=== PATIENT | male | born 1965 | race Caucasian/White ===

== ENCOUNTER 2018-07-24 20:12 | Observation (INO) | payer SELFPAY ==
[2018-07-24] MEDS ORDERED: Nitroglycerin 2% Ointment 1 INCH/1 GM Packet ONE (20:46)
[2018-07-24 21:38] LABS: Troponin I Less than 0.010 ng/mL (< 0.028)
[2018-07-24] MEDS ORDERED: Acetaminophen 325 MG TAB PO PRN (21:59)
[2018-07-24] MEDS ORDERED: Ondansetron HCl/PF 4 MG/2 ML Vial IVP PRN (21:59)
[2018-07-24] MEDS ORDERED: Aspirin 325 MG TAB PO SCH (22:15)
[2018-07-24 23:15] VITALS: BMI 45.4
[2018-07-25 00:48] LABS: Troponin I Less than 0.010 ng/mL (< 0.028)
--- NOTE | 2018-07-25 01:46 | HP ---
PRIMARY CARE PHYSICIAN: No PCP. CODE STATUS: FULL CODE. TIME OF EVALUATION: 8:55 p.m. CHIEF COMPLAINT: Shortness of breath and chest pain. HISTORY OF PRESENT ILLNESS: This is a 53-year-old male patient with past medical history that is non significant, came to the hospital after having gradually worsening shortness of breath, bilateral leg swelling, associated with some chest tightness earlier this morning. They last for a few hours, no clear triggers, no alleviating factors. The patient is morbidly obese, presenting with mildly elevat ed blood pressure, not taking any medications at home. Symptoms were moderate. REVIEW OF SYSTEMS: Constitutional: No fever or chills. Patient reported generalized weakness. Res piratory: Patient has shortness of breath, especially with exertion, mild sputum production. Cardio vascular: Patient has chest pain, no palpitation. Gastrointestinal: No nausea, vomiting, diarrhea or abdominal pain. TICKET TAKER FERRYBOAT: No dizziness, headache or feeling lightheaded. Genitourinary: No burning on urination. Extremities: Bilateral leg swelling. All other systems were reviewed and negative ex cept as the findings mentioned above. PAST MEDICAL HISTORY: No significant medical problems. PAST SURGICAL HISTORY: Bilateral knee arthroscopic surgery. PSYCHIATRIC HISTORY: No previous psychiatric history. SOCIAL HISTORY: No drug use, no alcohol. Patient smokes on a daily basis for 30 years, 2 packs a da y. DRUG ALLERGIES: No known drug allergies. REPORTED MEDICATIONS: None. PHYSICAL EXAMINATION: VITAL SIGNS: On presentation, heart rate 73, respiratory rate was 18, temperature 98, pain 0/10, oxy gen saturation 97% on room air. GENERAL APPEARANCE: The patient is alert, oriented, no acute distress. HEENT: Eyes, normal conjunctivae. Moist oral mucosa. Anicteric. No JVD. RESPIRATORY: Bilateral air entry. No rales, no wheezing. Symmetric expansion. CARDIOVASCULAR: Normal rate, regular rhythm. No murmurs or gallop. Bilateral leg edema ABDOMEN: Soft, normal bowel sounds. MUSCULOSKELETAL: Baseline range of motion and strength. No tenderness. SKIN: Warm and intact. No pallor, no rash or redness. Peripheral pulses are present. Capillary re fill seems to be intact. NEUROLOGIC: Baseline sensorium. No evidence of any new focal weakness. Baseline speech. Cranial n erves seem to be intact. PSYCHIATRIC: Patient is in good mood, no anxiety, oriented, optimal judgment. LABORATORY DATA: EKG was reviewed. Patient has normal sinus rhythm with a rate of 64, MN 164, QRS 9 0, QT corrected 410. Chest x-ray was reviewed which showed unremarkable AP view of the chest with mi ld pulmonary vascular congestion. LABORATORY DATA: Reviewed. Troponin was negative x2. Hematology: White count 9.0, hemoglobin 14.3 , platelet count 191. Coagulation: D-dimer was negative. Chemistry: Sodium 137, potassium 4.0, ch loride 99, carbon dioxide 29, anion gap 13, BUN 12, creatinine 1.16, GFR 65, glucose 212, calcium 9.3 , AST 73, ALT 102, alkaline phosphatase 145. Beta natriuretic peptide was normal. ASSESSMENT AND PLAN: The patient will be placed in the hospital following medical problems: 1. Possible underlying congestive heart failure, proBNP is normal; however, patient is obese, will b e false negative, we do echo in the morning, if echo is normal, might proceed with the stress test. 2. Troponins, we will monitor on telemetry. Patient has significant bilateral leg edema. We will t reat the patient with Lasix for now. 3. Morbid obesity, patient is advised to lose weight. 4. Everyday smoker, advised to stop smoking. 5. Hyperglycemia. Previous hemoglobin A1c in March was normal, so this might be intolerance to gluco se versus hyperglycemia due to acute physical distress. We will monitor, no need for an acute interv ention at this point. 6. Mildly elevated liver function tests, this could be secondary to obesity, possible fatty liver di sease. Bilirubin is normal. This might be followed as an outpatient.
[2018-07-25 05:16] LABS: #Monocytes 0.1 thou/uL (0.11-0.59); %Basophils 0.2 % (0.0-1.0); %Eosinophils 0.2 % (0.0-10.0); %Lymphocytes 9.6 % (21.0-51.0); %Monocytes 1.3 % (0.0-10.0); %Neutrophils 88.8 % (42.0-75.0); Mean Corpuscular HGB CONC 33.6 g/dL (32.0-36.0); Mean Corpuscular Volume 95.3 fL (78.0-98.0); Mean Platelet Volume 7.8 fL (7.4-10.4); Platelet Count 195 thou/uL (130-400); RBC Distribution Width 11.1 % (11.5-14.5); Red Blood Cell (RBC) Count 4.39 mill/uL (4.70-6.10); White Blood Cell (WBC) Count 10.1 thou/uL (4.8-10.8)
[2018-07-25 05:33] LABS: Anion Gap 14 mmol/L (10-20); BUN (Urea Nitrogen) 16 mg/dL (8.4-25.7); Calc. Creatinine Clearance 109 mL/min (70-130); Calcium 9.7 mg/dL (7.8-10.44); Carbon Dioxide 26 mmol/L (22-29); Chloride 97 mmol/L (98-107); Estimated GFR-MDRD 52; Glucose 483 mg/dL (70-105); Potassium 5.2 mmol/L (3.5-5.1); Sodium 132 mmol/L (136-145)
[2018-07-25] MEDS ORDERED: Dextrose 50% Abboject 50 ML SYRINGE IVP PRN (06:59)
[2018-07-25] MEDS ORDERED: Dextrose 5% in Water 1,000 ML IV PRN (06:59)
[2018-07-25] MEDS ORDERED: Insulin Regular 300 UNITS/3 ML VIAL SC PRN ×2 (06:59)
[2018-07-25] MEDS ORDERED: Furosemide 40 MG/4 ML VIAL SLOW IVP SCH (09:00)
[2018-07-25] MEDS: Enoxaparin Sodium 40 MG/0.4 ML SYRINGE SC SCH (10:23)
[2018-07-25] MEDS: Aspirin 325 MG TAB PO SCH (10:24)
[2018-07-25 11:17] LABS: Hemoglobin A1c 7.9 % (4.0-6.0)
[2018-07-25 13:25] LABS: Potassium 4.5 mmol/L (3.5-5.1)
--- NOTE | 2018-07-25 15:00 | PDOC.PN ---
- Subjective Encounter Start Date: 07/25/18 Encounter Start Time: 14:58 Subjective: feels much better.no CP/SOB. -: leg swelling has much improved -: smokes heavily & significant FH of CAD in father,brothers - Objective Resuscitation Status: Resuscitation Status FULL:Full Resuscitation MAR Reviewed: Yes Vital Signs & Weight: Vital Signs (12 hours) Temp Pulse Resp BP Pulse Ox 07/25/18 10:57 97.8 F 80 20 118/59 L 97 07/25/18 08:00 97.5 F L 91 24 H 137/63 93 L 07/25/18 04:22 98.7 F 78 16 141/68 H 93 L 07/25/18 04:00 93 L Weight Weight 290 lb 4 oz I&O: 07/24/18 07/25/18 07/26/18 06:59 06:59 06:59 Intake Total 200 Output Total 1150 1 Balance -950 -1 Result Diagrams: 07/25/18 04:42 07/25/18 13:02 Additional Labs: Accuchecks 07/25/18 07/25/18 11:00 06:52 POC Glucose 400 H 387 H Laboratory Tests 07/24/18 07/24/18 07/25/18 16:26 21:07 00:18 Potassium Creatinine 1.16 Hemoglobin A1c Troponin I Less than 0.010 Less than 0.010 Triglycerides Cholesterol LDL Cholesterol, Calc HDL Cholesterol 07/25/18 07/25/18 07/25/18 04:42 04:42 04:42 Potassium 5.2 H Creatinine 1.42 H Hemoglobin A1c 7.9 H Troponin I Triglycerides 87 Cholesterol 186 LDL Cholesterol, Calc 123 HDL Cholesterol 46 07/25/18 13:02 Potassium 4.5 Creatinine Hemoglobin A1c Troponin I Triglycerides Cholesterol LDL Cholesterol, Calc HDL Cholesterol Phys Exam - Physical Examination Constitutional: NAD HEENT: PERRLA, moist MMs, sclera anicteric, oral pharynx no lesions Neck: no nodes, no JVD, supple, full ROM Respiratory: no wheezing, no rales, no rhonchi, clear to auscultation bilateral Cardiovascular: RRR, no significant murmur, no rub Gastrointestinal: soft, non-tender, no distention, positive bowel sounds Musculoskeletal: no edema, pulses present Neurological: non-focal, normal sensation, moves all 4 limbs Psychiatric: normal affect, A&O x 3 Skin: no rash Dx/Plan (1) Dyspnea on exertion Code(s): R06.09 - OTHER FORMS OF DYSPNEA Status: Acute (2) GAGAN (acute kidney injury) Code(s): N17.9 - ACUTE KIDNEY FAILURE, UNSPECIFIED Status: Acute Comment: Likley due to diuresis (3) Leg swelling Code(s): M79.89 - OTHER SPECIFIED SOFT TISSUE DISORDERS Status: Acute (4) DM2 (diabetes mellitus, type 2) Status: Chronic Comment: new diagnosis (5) Morbid obesity with BMI of 45.0-49.9, adult Code(s): E66.01 - MORBID (SEVERE) OBESITY DUE TO EXCESS CALORIES; Z68.42 - BODY MASS INDEX (BMI) 45.0-49.9, ADULT Status: Chronic (6) Tobacco abuse Code(s): Z72.0 - TOBACCO USE Status: Chronic (7) Tobacco abuse counseling Code(s): Z71.6 - TOBACCO ABUSE COUNSELING Status: Acute - Plan plan discussed w/ family, out of bed/ambulate, DVT proph w/SCDs ECHO pending -: high E3s-mqyy start metformin on DC.ISS inpt -: Pt counselled extensively about diet & lifestyle modification,tobacco cessa -: will consult dietitian. -: Change lasix to PO.? COPD if ECHO NL * .may need Stress test if ECHO NL for angina equivalent Review of Systems - Review of Systems Constitutional: negative: fever, chills, sweats, weakness, malaise, other ENT: negative: Ear Pain, Ear Discharge, Nose Pain, Nose Discharge, Nose Congestion, Mouth Pain, Mouth Swelling, Throat Pain, Throat Swelling, Other Respiratory: negative: Cough, Dry, Shortness of Breath, Hemoptysis, SOB with Excertion, Pleuritic Pain, Sputum, Wheezing Cardiovascular: negative: chest pain, palpitations, orthopnea, paroxysmal nocturnal dyspnea, edema, light headedness, other Gastrointestinal: negative: Nausea, Vomiting, Abdominal Pain, Diarrhea, Constipation, Melena, Hematochezia, Other Genitourinary: negative: Dysuria, Frequency, Incontinence, Hematuria, Retention , Other Musculoskeletal: negative: Neck Pain, Shoulder Pain, Arm Pain, Back Pain, Hand Pain, Leg Pain, Foot Pain, Other Skin: negative: Rash, Lesions, Audie, Bruising, Other Neurological: negative: Weakness, Numbness, Incoordination, Change in Speech, Confusion, Seizures, Other - Medications/Allergies Allergies/Adverse Reactions: Allergies Allergy/AdvReac Type Severity Reaction Status Date / Time No Known Drug Allergies Allergy Verified 07/24/18 23:30 Medications: Current Medications Acetaminophen (Tylenol) 650 mg PO Q4H PRN PRN Reason: Headache/Fever or Pain Aspirin (Aspirin) 325 mg PO QAM-WM [facility] Last Admin: 07/25/18 10:24 Dose: 325 mg Dextrose/Water (Dextrose 50%) 25 gm IVP PRN PRN PRN Reason: HYPOGLYCEMIA PROTOCOL Enoxaparin Sodium (Lovenox) 40 mg SC 0900 [facility] Last Admin: 07/25/18 10:23 Dose: 40 mg Furosemide (Lasix) 40 mg SLOW IVP DAILY [facility] Last Admin: 07/25/18 10:24 Dose: 40 mg Glucagon (Glucagon) 1 mg IM PRN PRN PRN Reason: HYPOGLYCEMIA PROTOCOL Dextrose/Water (D5w) 1,000 mls @ 0 mls/hr IV INF PRN PRN Reason: HYPOGLYCEMIA PROTOCOL Insulin Human Regular (Humulin R) 0 units SC .MILD SLIDING PRN; Protocol PRN Reason: MILD SLIDING SCALE Last Admin: 07/25/18 11:54 Dose: 6 unit Insulin Human Regular (Humulin R) 0 units SC .BEDTIME SLIDING SC PRN; Protocol PRN Reason: BEDTIME SLIDING SCALE Lisinopril (Zestril) 5 mg PO BID [facility] Ondansetron HCl (Zofran) 4 mg IVP Q6H PRN PRN Reason: Nausea/Vomiting Sodium Chloride (Flush - Normal Saline) 10 ml IVF Q12HR [facility] Last Admin: 07/25/18 10:25 Dose: 10 ml Sodium Chloride (Flush - Normal Saline) 10 ml IVF PRN PRN PRN Reason: Saline Flush
[2018-07-25] MEDS: Lisinopril 5 MG TAB PO SCH (20:12)
[2018-07-26 06:29] LABS: Anion Gap 9 mmol/L (10-20); BUN (Urea Nitrogen) 19 mg/dL (8.4-25.7); Calc. Creatinine Clearance 117 mL/min (70-130); Calcium 8.5 mg/dL (7.8-10.44); Carbon Dioxide 32 mmol/L (22-29); Chloride 99 mmol/L (98-107); Estimated GFR-MDRD 57; Glucose 284 mg/dL (70-105); Potassium 4.1 mmol/L (3.5-5.1); Sodium 136 mmol/L (136-145)
[2018-07-26] MEDS ORDERED: Furosemide 40 MG TAB PO SCH (07:30)
[2018-07-26] MEDS ORDERED: PROVENTIL INHALER 6.7 G (200 INHALATIONS) INH PRN (08:51)
[2018-07-26] MEDS ORDERED: Furosemide 20 MG TAB PO SCH (08:51)
[2018-07-26] MEDS: Enoxaparin Sodium 40 MG/0.4 ML SYRINGE SC SCH (09:07)
[2018-07-26] MEDS: Lisinopril 5 MG TAB PO SCH (09:38)
[2018-07-26] MEDS: Aspirin 325 MG TAB PO SCH (09:38)
[2018-07-26] MEDS ORDERED: Regadenoson 0.4 MG/5 ML SYRINGE ONE (10:20)
[2018-07-26 12:29] VITALS: BP 115/56; TEMP 97.5
--- NOTE | 2018-07-26 13:12 | NM ---
CARDIAC SPECT: CLINICAL HISTORY: 53-year-old male with dyspnea, chest pain, and smoker. TECHNIQUE: A stress-only myocardial perfusion scan was performed following the intravenous administration of 29 mCi technetium-99m sestamibi. Pharmacologic stress with Lexiscan was monitored and interpreted by Linda Acosta NP. FINDINGS: Homogeneous tracer distribution is seen in the myocardial segments on the post stress images. GATED SPECT LVEF: 63%. WALL MOTION EXAM: Normal. IMPRESSION: Normal post stress myocardial perfusion scan. POS: CARLYLE
--- NOTE | 2018-07-26 14:36 | DIS ---
DATE OF ADMISSION: 07/25/2018 DATE OF DISCHARGE: 07/26/2018 CONDITION AT THE TIME OF DISCHARGE: Stable and improved. DISCHARGE DIAGNOSES: 1. Dyspnea, unclear etiology. Suspect reactive airway disease versus chronic obstructive pulmonary disease versus sleep apnea. 2. New diagnosis of diabetes mellitus. 3. Morbid obesity, body mass index of 44.7. 4. Hypertension. PRIMARY CARE PHYSICIAN: None. The patient used to see Dr. Fuller. DISCHARGE MEDICATIONS: 1. Albuterol inhaler q.i.d. p.r.n. for shortness of breath. 2. Lasix 20 mg daily p.r.n. for lower extremity swelling. 3. Lisinopril 5 mg daily. 4. Metformin XR 500 mg at bedtime. 5. Glucometer test strips and lancets. Prescriptions were provided. PROCEDURES DONE IN THE HOSPITAL: Transthoracic echocardiogram, which is unremarkable with EF of 50% to 55% with normal left ventricular size. Nuclear medicine stress test, which shows no evidence of r eversible or fixed defect. EF estimated at 63%. HISTORY OF PRESENTING ILLNESS: Mr. 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 He also reported complaints of lower extremity swelling and was admitted wit h a presumptive diagnosis of fluid overload for further workup. His BNP and proBNP were unremarkable . Chest x-ray did not have any evidence to suggest fluid overload. His cardiac enzymes were normal. Please see admission history and physical for further details. HOSPITAL COURSE: Serial cardiac enzymes were trended and lipid panel was checked and they were unrem arkable. He did have hyperglycemia with blood sugars as high as almost 500. Hemoglobin A1c was che ked and was elevated at 7.9. He was started on insulin sliding scale and was discharged on metformin for new diagnosis of diabetes. Diabetic education was provided to him. He underwent a transthoracic echocardiogram, which was unremarkable, so he underwent a nuclear medici ne stress test, workup for his dyspnea and lower extremity swelling. This was also unremarkable. At this time, there is no clear etiology for his lower extremity swelling, but he most likely has signi ficant either restrictive or obstructive lung disease. He either has some restrictive or obstructive lung disease given his long history of tobacco abuse. Extensive counseling was provided to the sekou ent and he verbalized understanding. He reports that he has been an EMT and knows how to control his symptoms. He was started on low dose lisinopril for mild hypertension and is educated about following up with [facility] primary care physician. He was also given prescription for albuterol inhaler in case he starts to feel short of breath and hear himself wheezing. He was also given a prescription for long-acting me tformin and glucose test supplies. By the time of surgery, the patient is back to his baseline and his breathing has improved to the poi nt where he is not requiring any oxygen to move around and his lower extremity swelling is have disap peared after some diuresis in the hospital. He will continue to take Lasix only as needed basis and will follow up with primary care physician as above. He was also given a referral to [facility], Dr. Evangelista for further workup of possible chronic lung disease. He was seen and examined prior to discharge. PHYSICAL EXAMINATION: VITAL SIGNS: This morning, temperature 97.4, pulse of 74, respirations 20, saturating 99% on room ai r, blood pressure 123/52. GENERAL: No acute distress, awake, alert, oriented x3. CHEST: Clear to auscultation without any wheezing, rales or rhonchi. Rhythm is regular. LABORATORY EXAMINATION: Cardiac enzymes were trended and troponin was less than 0.010 x3. Lipid moore el was checked and was within normal limits with LDL of 123, triglyceride 87, total cholesterol 186. Hemoglobin A1c 7.9. He does have evidence of mild acute kidney insufficiency with a creatinine of 1 .31 secondary to diuresis. It is trending down.
== END 2018-07-26 13:07 | disposition home or self-care (01) ==
LOC: ERS 20:12 → 2SW 22:58
PROVIDERS: ADMIT Hospitalist; ATTEND Hospitalist
DX: R06.09 Other forms of dyspnea (principal); R07.89 Other chest pain; F17.210 Nicotine dependence, cigarettes, uncomplicated; R79.89 Other specified abnormal findings of blood chemistry; E11.65 Type 2 diabetes mellitus with hyperglycemia; N17.9 Acute kidney failure, unspecified; I10 Essential (primary) hypertension; E66.01 Morbid (severe) obesity due to excess calories; Z68.42 Body mass index [BMI] 45.0-49.9, adult
CPT/HCPCS: 36415; 36416; 78452; 80048; 80061; 83036; 85025; 93017; 93306; 94760; 96372; 96374; 99406; A4216; A9500; G0378; J1650; J1815; J1940; J2785

== ENCOUNTER 2022-07-22 00:44 | Observation (INO) | payer OTHER, SELFPAY ==
[2022-07-22] MEDS ORDERED: cefTRIAXone\\ROCEPHIN 1 GM VIAL ONE (01:17)
[2022-07-22 01:29] LABS: #Basophils 0.1 thou/uL (0.0-0.2); #Lymphocytes 1.7 thou/uL (1.20-3.40); #Monocytes 0.9 thou/uL (0.11-0.59); #Neutrophils 13.5 thou/uL (1.40-6.50); %Basophils 0.3 % (0.0-1.0); %Eosinophils 0.3 % (0.0-10.0); %Lymphocytes 10.4 % (21.0-51.0); %Monocytes 5.6 % (0.0-10.0); %Neutrophils 83.4 % (42.0-75.0); Hemoglobin 12.5 g/dL (14.0-18.0); Mean Corpuscular HGB CONC 33.5 g/dL (32.0-36.0); Mean Corpuscular Volume 95.4 fL (78.0-98.0); Mean Platelet Volume 7.3 fL (7.4-10.4); Platelet Count 162 thou/uL (130-400); RBC Distribution Width 11.3 % (11.5-14.5); Red Blood Cell (RBC) Count 3.91 mill/uL (4.70-6.10); White Blood Cell (WBC) Count 16.2 thou/uL (4.8-10.8)
[2022-07-22] MEDS ORDERED: Azithromycin 500 MG VIAL ONE (01:38)
[2022-07-22 01:51] LABS: ALT (SGPT) 23 U/L (8-55); AST (SGOT) 12 U/L (5-34); Albumin 3.2 g/dL (3.5-5.0); Alkaline Phosphatase 89 U/L (40-110); Anion Gap 12 mmol/L (10-20); BUN (Urea Nitrogen) 10 mg/dL (8.4-25.7); Calc. Creatinine Clearance 0 mL/min (70-130); Calcium 7.9 mg/dL (7.8-10.44); Carbon Dioxide 21 mmol/L (22-29); Chloride 98 mmol/L (98-107); Estimated GFR 73; Globulin 3.4 g/dL (2.4-3.5); Glucose 316 mg/dL (70-105); Potassium 3.9 mmol/L (3.5-5.1); Protein, Total 6.6 g/dL (6.0-8.3); Sodium 127 mmol/L (136-145)
[2022-07-22] MEDS ORDERED: Ondansetron PF 4 MG/2 ML Vial ONE (01:52)
[2022-07-22] MEDS ORDERED: Ketorolac Tromethamine 30 MG/ML VIAL ONE (03:50)
[2022-07-22 04:50] LABS: Lactic Acid 1.4 mmol/L (0.5-2.2)
[2022-07-22 05:07] VITALS: BMI 37.9
[2022-07-22 05:41] LABS: SARS-CoV-2 NAA Rapid Test Not Detected (NotDetected)
[2022-07-22] MEDS ORDERED: Dextrose 50% Abboject 50 ML SYRINGE SLOW IVP PRN (07:28)
[2022-07-22] MEDS ORDERED: Ondansetron PF 4 MG/2 ML Vial IVP PRN (07:28)
[2022-07-22] MEDS ORDERED: Dextrose 5% in Water 1,000 ML IV PRN (07:28)
[2022-07-22] MEDS ORDERED: HumaLOG 300 UNITS/3 ML VIAL SC PRN (07:28)
[2022-07-22] MEDS ORDERED: Benzonatate 100 MG CAP PO PRN (07:32)
[2022-07-22] MEDS ORDERED: Nicotine 21 MG PATCH TD PRN (07:36)
[2022-07-22] MEDS ORDERED: Sodium Chloride 0.9% 500 ML IV SCH (07:45)
[2022-07-22] MEDS: Enoxaparin Sodium 40 MG/0.4 ML SYRINGE SC SCH (09:32)
[2022-07-22] MEDS: guaiFENesin ER 600 MG TAB PO SCH ×2 (09:32→20:36)
[2022-07-22] MEDS: Lactated Ringer's 1,000 ML IV SCH ×2 (10:26→17:00)
[2022-07-22] MEDS: HumaLOG 300 UNITS/3 ML VIAL SC PRN ×2 (12:42→17:26)
[2022-07-22] MEDS: Acetaminophen 325 MG TAB PO PRN ×2 (16:00→23:39)
[2022-07-22] MEDS ORDERED: cefTRIAXone\\ROCEPHIN 2 GM in Sodium Chloride 0.9% 100 ML IVPB SCH (21:00)
[2022-07-23] MEDS: Lactated Ringer's 1,000 ML IV SCH ×2 (03:13→08:44)
[2022-07-23] MEDS: HumaLOG 300 UNITS/3 ML VIAL SC PRN ×2 (05:58→12:02)
[2022-07-23 06:53] LABS: #Basophils 0.1 thou/uL (0.0-0.2); #Eosinphils 0.3 thou/uL (0.0-0.7); #Lymphocytes 2.1 thou/uL (1.20-3.40); #Monocytes 0.9 thou/uL (0.11-0.59); #Neutrophils 9.3 thou/uL (1.40-6.50); %Basophils 0.5 % (0.0-1.0); %Lymphocytes 16.6 % (21.0-51.0); %Monocytes 6.9 % (0.0-10.0); Mean Corpuscular HGB CONC 33.3 g/dL (32.0-36.0); Mean Corpuscular Hemoglobin 31.9 pg (27.0-31.0); Mean Corpuscular Volume 95.7 fL (78.0-98.0); Mean Platelet Volume 7.4 fL (7.4-10.4); Platelet Count 169 thou/uL (130-400); RBC Distribution Width 11.4 % (11.5-14.5); Red Blood Cell (RBC) Count 4.09 mill/uL (4.70-6.10); White Blood Cell (WBC) Count 12.6 thou/uL (4.8-10.8)
[2022-07-23 07:10] LABS: Anion Gap 12 mmol/L (10-20); BUN (Urea Nitrogen) 10 mg/dL (8.4-25.7); Calc. Creatinine Clearance 139 mL/min (70-130); Calcium 8.3 mg/dL (7.8-10.44); Carbon Dioxide 22 mmol/L (22-29); Chloride 102 mmol/L (98-107); Estimated GFR 99; Glucose 216 mg/dL (70-105); Sodium 132 mmol/L (136-145)
[2022-07-23] MEDS ORDERED: Azithromycin 500 MG in Sodium Chloride 0.9% 250 ML 250 ML IVPB SCH (07:30)
[2022-07-23] MEDS: Enoxaparin Sodium 40 MG/0.4 ML SYRINGE SC SCH (08:43)
[2022-07-23] MEDS: guaiFENesin ER 600 MG TAB PO SCH (08:43)
[2022-07-23 12:37] VITALS: BP 101/66; TEMP 98.5
== END 2022-07-23 14:15 | disposition home or self-care (01) ==
LOC: ERS 00:44 → T4-A 03:50
PROVIDERS: ADMIT Internal Medicine; ATTEND Internal Medicine
DX: A41.9 Sepsis, unspecified organism (principal); J18.9 Pneumonia, unspecified organism; I95.9 Hypotension, unspecified; E87.1 Hypo-osmolality and hyponatremia; E11.65 Type 2 diabetes mellitus with hyperglycemia; F17.210 Nicotine dependence, cigarettes, uncomplicated; R60.0 Localized edema; D64.9 Anemia, unspecified; I10 Essential (primary) hypertension; E66.01 Morbid (severe) obesity due to excess calories; Z68.38 Body mass index [BMI] 38.0-38.9, adult; Z79.84 Long term (current) use of oral hypoglycemic drugs; Z79.899 Other long term (current) drug therapy; Z20.822 Contact with and (suspected) exposure to COVID-19
CPT/HCPCS: 36415; 36416; 71045; 80048; 80053; 83605; 84484; 85025; 87040; 87804; 93005; 94640; 96372; 96374; 96375; 96376; G0378; J0456; J0696; J1650; J1815; J1885; J2405; J3490; J7030; J7050; J7120; J7620; U0002